=== PATIENT | female | born 1955 | race Caucasian/White ===

== ENCOUNTER 2020-03-14 16:16 | Inpatient (IN) | payer OTHER ==
[2020-03-14 16:34] LABS: Absolute Lymphocytes (CBC) 1.1 K/uL (0.7-4.9); Basophils % 0.9 % (0-1.3); Hematocrit 27.8 % (36.0-45.0); Lymphocytes % 6.3 % (15.3-44.8); MPV 7.1 fL (7.6-11.3); RBC Red Blood Cell Count 3.62 M/uL (3.86-4.86)
[2020-03-14 16:39] LABS: Protime INR 2.12
--- NOTE | 2020-03-14 16:51 | RAD REPORT ---
EXAM DESCRIPTION: Priscila Single View03/14/2020 4:42 pm CLINICAL HISTORY: Chest pain COMPARISON: none FINDINGS: Small to moderate right and small left pleural effusions Bibasilar atelectasis Mild bilateral pulmonary opacities Heart is borderline enlarged. Central venous line in place IMPRESSION: These findings may indicate CHF
[2020-03-14 16:54] LABS: ALT/SGPT 10 U/L (12-78); AST/SGOT 23 U/L (15-37); Albumin 2.4 g/dL (3.4-5.0); Alkaline Phosphatase 35 U/L (45-117); BUN Blood Urea Nitrogen 41 mg/dL (7-18); Bicarbonate 16 mmol/L (21-32); Bilirubin Direct 0.1 mg/dL (0-0.2); Bilirubin Total 0.3 mg/dL (0.2-1.0); Glucose Level 84 mg/dL (74-106); Magnesium 1.8 mg/dL (1.8-2.4); NT PRO-BNP 2426 pg/mL (<125); Protein, Total 7.1 g/dL (6.4-8.2); Sodium Level 123 mmol/L (136-145); Troponin (Emerg Dept Use Only) < 0.02 ng/mL (0.0-0.045)
[2020-03-14 16:57] LABS: Potassium 5.8 mmol/L (3.5-5.1)
[2020-03-14] MEDS ORDERED: Levofloxacin500mg IV 500 MG/100 ML BAG IV ONE (16:58)
[2020-03-14] MEDS ORDERED: NA CHLORIDE 0.9% 1,000 ML ONE (16:58)
[2020-03-14] MEDS ORDERED: FUROSEMIDE 20 MG/ 2ML VIAL ONE (17:21)
[2020-03-14 17:25] LABS: Urine Blood NEGATIVE (NEG); Urine Glucose NEGATIVE (NEG); Urine Protein 1+ (NEG); Urine pH 5.5 (5.0-7.0)
[2020-03-14] MEDS ORDERED: INSULIN -REGULAR HUMAN 50 UNIT/0.5 ML ML ONE (18:03)
[2020-03-14] MEDS ORDERED: D50W 25 GM/50 ML SYRINGE/VIAL IV ONE (18:03)
[2020-03-14 18:41] LABS: Urine White Blood Cell Casts OK
[2020-03-14 18:42] LABS: Blood Morphology Comment NOTED (NOT SEEN); Platelet Estimate INCR; Polychromasia 1+
[2020-03-14] MEDS ORDERED: ACETAMINOPHEN 325 MG TABLET PO PRN (21:20)
[2020-03-14] MEDS ORDERED: ONDANSETRON 4 MG/2 ML VIAL IV PRN (21:20)
[2020-03-14] MEDS ORDERED: HYDRALAZINE HCL 20 MG/ML VIAL IV PRN (21:20)
[2020-03-14] MEDS ORDERED: FUROSEMIDE 40 MG/4 ML VIAL IV ONE (21:25)
[2020-03-14] MEDS ORDERED: SOD POLYSTYREN SUL 15 GM/60 ML UCUP PO ONE (21:28)
--- NOTE | 2020-03-14 21:34 | P.HP ---
Certification for Inpatient With expected LOS: >2 Midnights Patient will require the following post-hospital care: Hospice Practitioner: I am a practitioner with admitting privileges, knowledge of patient current condition, hospital course, and medical plan of care. Services: Services provided to patient in accordance with Admission requirements found in Title 42 Section 412.3 of the Code of Federal Regulations Patient History Date of Service: 03/14/20 Reason for admission: Fall with near syncope History of Present Illness: Patient with hx of metastatic ovarian cancer with reported liver and lung mets since 2018 , s/p failed chemo with self reported prescribed hospice at both [facility] nd [facility] , she stopped following since last 6 months , hx of DVT in the past on Eliquis , currently taking only hydrocodone and eliquis and was last seen at [facility] 1 month ago for meds refill , progressive weakness, SOB , loss of appetite due to dryness in thorat with solid meals but able to tolerate liquid intake . State she has never been tried on any appetite stimulant , states she was refer to hospice but hospice never come to her house since last 4 months . States occ nausea and vomiting . she developed near syncope today while walking to the door . in the ER , she was noted with low BP with systolic in the 80s and CXR showing b/l pleura effusions . Spouse initially wanted peg tube placement for feeding Home medications list reviewed: No - Past Medical/Surgical History Has patient received pneumonia vaccine in the past: No Diabetic: No -: met ovarian cancer Past Surgical History: Patient denies surgical history - Family History Family History: Reviewed- Non-Contributory - Social History Smoking Status: Never smoker Smoking therapy provided: No CD- Drugs: No Caffeine use: No Place of Residence: Home Review of Systems 10-point ROS is otherwise unremarkable ENT: Unremarkable Respiratory: Shortness of Breath, SOB with Excertion Cardiovascular: Unremarkable Gastrointestinal: Diarrhea (since 1 day ) Genitourinary: Unremarkable Integumentary: Unremarkable Neurological: Weakness Physical Examination - Vital Signs Blood Pressure: 88/65 Pulse: 113 Respirations: 30 Pulse Ox (%): 95 - Physical Exam General: Cooperative, Cachectic HEENT: Atraumatic, Normocephalic, Other (markedly pale ), Scleral icterus Neck: 2+ carotid pulse no bruit, JVD not distended Respiratory: Diminished, Crackles/rales Cardiovascular: No edema, Regular rate/rhythm, Normal S1 S2 Capillary refill: <2 Seconds Gastrointestinal: Normal bowel sounds, Soft and benign, Non-distended, No tenderness, No rebound Musculoskeletal: No clubbing, No swelling Integumentary: No rashes, No breakdown Neurological: Normal speech, Normal strength at 5/5 x4 extr, Normal reflexes 2+ - Studies Laboratory Data (last 24 hrs) 03/14/20 16:23: PT 24.6 H, INR 2.12 03/14/20 16:23: WBC 17.2 H, Hgb 8.3 L, Hct 27.8 L, Plt Count 492 H 03/14/20 16:23: Sodium 123 L, Potassium 5.8 H*, BUN 41 H, Creatinine 1.24, Glucose 84, Magnesium 1.8, Total Bilirubin 0.3, AST 23, ALT 10 L, Alkaline Phosphatase 35 L Assessment and Plan - Problems (Diagnosis) (1) Cancer cachexia Current Visit: Yes Status: Acute (2) Hypotension Current Visit: Yes Status: Acute (3) ARF (acute renal failure) Current Visit: Yes Status: Acute (4) Hyperkalemia Current Visit: Yes Status: Acute (5) Hyponatremia syndrome Current Visit: Yes Status: Acute (6) Metabolic acidosis Current Visit: Yes Status: Acute - Advance Directives Does patient have a Living Will: No Does patient have a Durable POA for Healthcare: No Physician Review: Patient Assessed, Agree with Above Assessment and Plan Physician Review Additional Text: # Pleural effusion - due to malignancy , will start gentle diuretics after BP optimized #Hypotension - will start low dose midodrine tid 10 mg - may need IV pressors if persistent #ARF with Hyperkalemia/Met Acidosis - may be due to ATN from hypotension - optimized BP - will consult renal -Dose kayxelate 15 g x1 now -replace bicarb now and IVF at slow gtt -follow BMP q12h for now -Given ovarian cancer , and elevated k , possibility of obstructive uropathy considered , will obtain CT without to r/o hydronephrosis -Insert olson now #Hyponatremia - may be due to SIADH from cancer vs ARF - follow with replacement of bicarbonate #Met Ovarian cancer - will consult case mgt for hospice plan # Advance directive - poor overall prognosis discussed , option of DNR status discussed but patient wants to be full code . Time Spent Managing Pts Care (In Minutes): 65
[2020-03-14 22:03] LABS: Uric Acid 8.6 mg/dL (2.6-6.0)
[2020-03-14 22:04] LABS: Thyroid Stimulating Hormone 9.18 uIU/mL (0.360-3.740)
[2020-03-14] MEDS ORDERED: SCOPOLAMINE HYDROBROMIDE PATCH TD ONE (22:09)
[2020-03-15] MEDS ORDERED: SODIUM BICARB 50 MEQ/50ML VIAL ONE ×3 (00:05→05:54)
[2020-03-15] MEDS ORDERED: D5 0.9 NS 0 ML IV ONE (00:06)
[2020-03-15] MEDS ORDERED: D5W 1,000 ML IV ONE (00:10)
[2020-03-15] MEDS: D5W 1,000 ML with NA BICARB 8.4% 150 MEQ IV SCH ×4 (02:00→22:40)
[2020-03-15 02:15] LABS: Protime INR 2.25
[2020-03-15] MEDS: MIDODRINE HCL 5 MG TABLET PO SCH ×4 (03:53→22:22)
[2020-03-15] MEDS: MORPHINE 2 MG/ML SYR IV PRN ×2 (04:10→09:50)
[2020-03-15 04:36] VITALS: BMI 20.8
[2020-03-15 04:36] LABS: Absolute Lymphocytes (CBC) 1.1 K/uL (0.7-4.9); Basophils % 0.5 % (0-1.3); Hematocrit 23.8 % (36.0-45.0); Lymphocytes % 7.7 % (15.3-44.8); MPV 7.5 fL (7.6-11.3); RBC Red Blood Cell Count 3.12 M/uL (3.86-4.86)
[2020-03-15 04:58] LABS: Albumin 2.1 g/dL (3.4-5.0); Bilirubin Total 0.3 mg/dL (0.2-1.0); Protein, Total 6.4 g/dL (6.4-8.2)
[2020-03-15 04:59] LABS: Potassium 5.8 mmol/L (3.5-5.1)
[2020-03-15] MEDS: FUROSEMIDE 40 MG TABLET PO SCH ×2 (09:00→17:00)
[2020-03-15] MEDS: FAMOTIDINE 20 MG/2 ML VIAL IV SCH ×2 (09:32→22:22)
[2020-03-15] MEDS: MEGESTROL 400 MG/10 ML UCUP PO SCH ×2 (09:32→22:21)
[2020-03-15] MEDS ORDERED: OXYCODONE HCL 5 MG TAB PO PRN (10:20)
[2020-03-15 10:58] LABS: Potassium 5.5 mmol/L (3.5-5.1)
--- NOTE | 2020-03-15 11:01 | RAD REPORT ---
EXAM DESCRIPTION: RAD - Chest Single View - 03/15/2020 10:10 am CLINICAL HISTORY: sob COMPARISON: March 14 portable TECHNIQUE: AP portable chest image was obtained 03/15/2020 10:10 am . FINDINGS: Bilateral pleural effusion pattern remains, fluid is present along the fissures on both si kamilla. Hazy alveolar opacities are present. Right-sided Port-A-Cath is in place. Heart size is normal r taurus. Vasculature is mildly prominent. Lungs may be slightly improved. Differential is minimal. No pn eumothorax. IMPRESSION: Bilateral pleural effusions are present stable from prior imaging. Hazy alveolar opacities are present and may be fractionally improved. The differential is minimal.
[2020-03-15 13:35] LABS: Hematocrit 24.1 % (36.0-45.0)
--- NOTE | 2020-03-15 14:11 | P.CNS ---
Date of Consult: 03/15/20 Reason for Consult: severe hyponatremia Requesting Physician: Anita Villa Chief Complaint: Fall with near syncope History of Present Illness: 64 y o female pt with hx of metastatic ovarian cancer with poor appettite and weakness who was admitted for management of hypotension, cachexia, failure to thrive and severe hyponatremia. Her BP was noted to be low with systolic of 60s on initial evaluation. Sodium was 123 prompting nephrology consultation. As per family, she has had poor appetite and oral intake of food and mostly has been drinking plain water only. She has difficulty swallowing solid food. Allergies codeine Allergy (Verified 03/14/20 21:38) Itching/Hives/Rash iodine Allergy (Verified 03/14/20 21:38) Itching/Hives/Rash Penicillins Allergy (Verified 03/14/20 21:38) Itching/Hives/Rash Home Medications: Apixaban [Eliquis] 1 tab PO BID 03/15/20 Oxycodone HCl [Roxicodone] 1 tab PO Q6HP PRN 03/15/20 Oxycodone Myristate [Xtampza ER] 1 tab PO BID 03/15/20 - Past Medical/Surgical History Diabetic: No -: met ovarian cancer -: "blood clots everywhere" -: hysterectomy - Family History Mother Medical History: Heart disease, Hypertension, Diabetes Brother Medical History: Cancer Notes: bone - Social History Alcohol use: No CD- Drugs: No Caffeine use: No Place of Residence: Home Review of Systems 10-point ROS is otherwise unremarkable Physical Examination Temp Pulse Resp BP Pulse Ox 97.7 F 114 H 24 H 93/71 100 03/15/20 03:21 03/15/20 13:00 03/15/20 13:00 03/15/20 13:00 03/15/20 13:00 General: Alert, Oriented x3, Cachectic HEENT: Atraumatic, Normocephalic, EOMI Neck: Supple Respiratory: Clear to auscultation bilaterally Cardiovascular: No edema, Regular rate/rhythm, Normal S1 S2 Gastrointestinal: Soft and benign Musculoskeletal: No swelling, Other (wasred muscles.) Neurological: Normal speech, Cranial nerves 3-12 intact Laboratory Data (last 24 hrs) 03/15/20 03:50: Sodium 123 L, Potassium 5.8 H*, BUN 41 H, Creatinine 1.25, Glucose 89, Total Bilirubin 0.3, AST 23, ALT 11 L, Alkaline Phosphatase 29 L 03/15/20 03:50: WBC 14.0 H D, Hgb 7.3 L*, Hct 23.8 L, Plt Count 496 H 03/15/20 01:55: PT 26.1 H, INR 2.25, APTT 30.0 03/14/20 16:23: Uric Acid 8.6 H 03/14/20 16:23: PT 24.6 H, INR 2.12 03/14/20 16:23: WBC 17.2 H, Hgb 8.3 L, Hct 27.8 L, Plt Count 492 H 03/14/20 16:23: Sodium 123 L, Potassium 5.8 H*, BUN 41 H, Creatinine 1.24, Glucose 84, Magnesium 1.8, Total Bilirubin 0.3, AST 23, ALT 10 L, Alkaline Phosphatase 35 L Conclusions/Impression: Severe Hyponatremia: deemed due to hypovelemia as she has had poor oral intkae o f food but with her hx of carcinoma, there is strong suspicion for SIADH. We will obtain urine studies of sodium, osmolality and evaluate further. She has been started on isotonic fluid and she has responded well to thi with a 2 point rise in sodiu level. We will monitor her sodium level every 6hrs. Stage 4 ovarian cancer: On home hospice placement finalization. Anorexia: Megace started with nutritional supplementation. Hypovolemia/hypotension: On IV fluid repletion.
--- NOTE | 2020-03-15 15:42 | RAD REPORT ---
EXAM DESCRIPTION: CT - Abdomen Pelvis Wo Contrast - 03/14/2020 11:18 pm CLINICAL HISTORY: R/o hydronephrosis COMPARISON: None. TECHNIQUE: CT ABDOMEN PELVIS WITHOUT IV CONTRAST on 03/14/2020 12:00 AM CDT This exam was performed according to our departmental dose-optimization program, which includes autom ated exposure control, adjustment of the mA and/or kV according to patient size and/or use of iterati ve reconstruction technique. FINDINGS: There are large bilateral pleural effusions. There is extensive bibasilar atelectasis. There are mult iple lower lung nodules measuring up to 5 mm. Abdomen: The liver is normal in appearance. There is no biliary dilatation. Gallbladder is somewhat p oorly seen. There is a large cyst in the medial spleen measuring 8.3 cm. Pancreas is normal. IVC filt er is in place. There may be mild right hydronephrosis. Left kidney and both adrenal glands are gross ly unremarkable. Abdominal aorta is normal in course and caliber without aneurysm. There is no free air. There is no r etroperitoneal adenopathy. Pelvis: There is no bowel obstruction. Urinary bladder is decompressed with a Glynn catheter. There i s no free fluid. Uterus is normal in appearance. Appendix is not well seen. Skeleton: There are no acute osseous findings. No suspicious bony lesions. IMPRESSION: Bilateral pleural effusions with bilateral lower lung pulmonary nodules. No definite acute inflammatory process in the abdomen or pelvis other than splenic indeterminate lesi on. Electronically signed by: Coy Salazar MD 03/14/2020 10:45 PM CDT Due to temporary technical issues with the PACS/Fluency reporting system, reports are being signed by the in house radiologistwithout review asa courtesy toensure prompt reporting. The interpreting radi ologist is fully responsible for the content of the report.
--- NOTE | 2020-03-15 17:58 | P.PN ---
Subjective Date of Service: 03/15/20 Chief Complaint: Fall with near syncope Subjective: Other (Stable. No significant shortness of breath.) Physical Examination - Vital Signs Temperature: 97.9 F Blood Pressure: 85/66 Pulse: 98 Respirations: 22 Pulse Ox (%): 100 - Physical Exam General: Alert, Cooperative HEENT: Atraumatic Neck: Supple Respiratory: Crackles/rales Cardiovascular: Normal pulses, Regular rate/rhythm Gastrointestinal: Normal bowel sounds, Soft and benign, Non-distended Neurological: Normal affect - Studies Laboratory Data (last 24 hrs) 03/15/20 03:50: Sodium 123 L, Potassium 5.8 H*, BUN 41 H, Creatinine 1.25, Glucose 89, Total Bilirubin 0.3, AST 23, ALT 11 L, Alkaline Phosphatase 29 L 03/15/20 03:50: WBC 14.0 H D, Hgb 7.3 L*, Hct 23.8 L, Plt Count 496 H 03/15/20 01:55: PT 26.1 H, INR 2.25, APTT 30.0 03/14/20 16:23: Uric Acid 8.6 H Microbiology Data (last 24 hrs): 03/14/20 17:47 Blood - Blood Anaerobic Blood Culture - Final Medications List Reviewed: Yes Assessment & Plan Discharge Plan: Home (With hospice) Plan to discharge in: 24 Hours Physician Review Additional Text: Impression: Bilateral pleural effusion likely malignant in nature Stage IV ovarian cancer with metastasis Hypotension likely related to above Acute renal failure with hyperkalemia and metabolic acidosis Hyponatremia Plan: Case discussed at length with patient and . Patient understands that her diagnosis is terminal. Apparently she has been to [facility] and [facility]. Both have recommended hospice. Advanced directives addressed in detail. Patient unsure of her current situation. She does desire to go home on hospice. Will have hospice evaluate patient. Will need to consider discharge with hospice tomorrow. Will discuss further with patient's family. Will try to obtain information on her current status related to her stage IV ovarian cancer. Will discuss further with nephrology. Time Spent Managing Pts Care (In Minutes): 55
--- NOTE | 2020-03-15 19:16 | EDPHYS ---
Physician Documentation [facility] Name: Amparo Hardy Age: 64 yrs Sex: Female : 1955 Arrival Date: 03/14/2020 Time: 16:17 Bed 7 Private MD: ED Physician Kush Oneill HPI: 03/14 16:39 This 64 yrs old Female presents to ER via EMS with complaints of Shortness Of kdr Breath, Needs home O2 \T\ hospice. 16:39 The patient has shortness of breath at rest, with light activity. Onset: The kdr symptoms/episode began/occurred gradually, at an unknown time. Duration: The symptoms are continuous, and are steadily getting worse. 18:04 The patient has become increasing weak over the last few months. She has Stage 4 kdr Ovarian CA and was sitting in a chair when she became weak and slid out onto the floor. EMS was called and she was noted to have O2 saturation in the 80's and was tachycardiac (130's). Family explains is not happy with the care and options they have been given at [facility] in [place]. Specifically, they have wanted a feeding tube placed and they claim her oncologist (Dr. Ruff) has refused to allow this to happen. They claim that the patient has had very poor nutrition secondary to inability to eat and she grows weaker. Historical: - Allergies: 16:26 Iodine; sv 16:26 Codeine; sv 16:26 PENICILLINS; sv - Home Meds: 16:26 Eliquis oral oral [Active]; Oxycodone HCl Oral [Active]; Xtampza quick release [Active];sv - PMHx: 16:26 Metastatic cancer; sv - Immunization history:: Adult Immunizations. - Social history:: Smoking status: Patient denies any tobacco usage or history of. ROS: 18:04 Constitutional: Negative for fever, chills, - she has had weight loss, She was kdr orginally 81 kg and is now 54 kg Eyes: Negative for injury, pain, redness, and discharge, Neck: Negative for injury, pain, and swelling, Abdomen/GI: Negative for abdominal pain, nausea, vomiting, diarrhea, and constipation, : Negative for injury, bleeding, discharge, and swelling, MS/Extremity: Negative for injury and deformity, Skin: Negative for injury, rash, and discoloration, Psych: Negative for depression, anxiety, suicide ideation, homicidal ideation, and hallucinations, Allergy/Immunology: Negative for hives, rash, and allergies, Endocrine: Negative for neck swelling, polydipsia, polyuria, polyphagia, and marked weight changes, Hematologic/Lymphatic: Negative for swollen nodes, abnormal bleeding, and unusual bruising. 18:04 Cardiovascular: Positive for palpitations, Negative for chest pain, edema, orthopnea. 18:04 Respiratory: Positive for dyspnea on exertion, shortness of breath, Negative for orthopnea, pleurisy. Exam: 16:50 Constitutional: This is a well developed, well nourished patient who is awake, alert, kdr and in mmild to moderate distress. Head/Face: Normocephalic, atraumatic. Eyes: Pupils equal round and reactive to light, extra-ocular motions intact. Lids and lashes normal. Conjunctiva and sclera are non-icteric and not injected. Cornea within normal limits. Periorbital areas with no swelling, redness, or edema. Neck: Trachea midline, no thyromegaly or masses palpated, and no cervical lymphadenopathy. Supple, full range of motion without nuchal rigidity, or vertebral point tenderness. No Meningismus. Chest/axilla: Normal chest wall appearance and motion. Nontender with no deformity. No lesions are appreciated. Neuro: Awake and alert, GCS 15, oriented to person, place, time, and situation. Cranial nerves II-XII grossly intact. Motor strength 5/5 in all extremities. Sensory grossly intact. Cerebellar exam normal. the patient is bed bound 16:50 Cardiovascular: Rate: tachycardic, Rhythm: regular, Pulses: thready, weak, Edema: is not appreciated. 16:50 ECG was reviewed by the Attending Physician. 16:50 Respiratory: mild respiratory distress is noted, Respirations: labored breathing, that is mild, Breath sounds: rales, that are mild, are scattered. Vital Signs: 16:09 BP 94 / 61; Pulse 128; Resp 30; Temp 97.6; Pulse Ox 100% ; sv 16:44 Weight 54.43 kg; sv 17:24 BP 103 / 66; Pulse 117; Resp 28; Pulse Ox 100% on 5 lpm NC; sv 18:34 BP 95 / 60; Pulse 118 MON; Resp 26; Pulse Ox 100% on 5 lpm NC; sv 19:41 BP 84 / 57; Pulse 110; Resp 25; Pulse Ox 100% on 5 lpm NC; mg2 20:45 BP 93 / 59; Pulse 100; Resp 23; Pulse Ox 97% ; mg2 21:29 BP 96 / 49; Pulse 112; Resp 18; Pulse Ox 100% on R/A; mg2 23:00 BP 91 / 61; Pulse 93; Resp 22; Pulse Ox 100% on 5 lpm NC; mg2 06/01 00:00 BP 89 / 61; Pulse 92; Resp 21; Pulse Ox 100% on 5 lpm NC; mg2 01:00 BP 93 / 60; Pulse 92; Resp 22; Pulse Ox 100% on 5 lpm NC; mg2 02:34 BP 106 / 63; Pulse 96; Resp 18; Temp 98; Pulse Ox 100% on 5 lpm NC; mg2 18:34 Sinus tachycardia sv MDM: 03/14 16:50 Data reviewed: vital signs, nurses notes, lab test result(s), EKG, radiologic studies. kdr Counseling: I had a detailed discussion with the patient and/or guardian regarding: the historical points, exam findings, and any diagnostic results supporting the discharge/admit diagnosis, lab results, radiology results. 18:45 ED course: family refused CT chest - has prior history of PE (on Eliquis). kdr 18:46 ED course: [facility] declined transfer due to possible need for ICU and they were on ICU kdr staturation. 19:28 Patient medically screened. kdr 03/14 16:19 Order name: Basic Metabolic Panel kdr 03/14 16:19 Order name: CBC with Diff kdr 03/14 16:19 Order name: LFT's; Complete Time: 17:14 kdr 03/14 16:19 Order name: Magnesium; Complete Time: 17:14 kdr 03/14 16:19 Order name: NT PRO-BNP; Complete Time: 17:14 kdr 03/14 16:19 Order name: PT-INR; Complete Time: 17:14 kdr 03/14 16:19 Order name: Troponin (emerg Dept Use Only); Complete Time: 17:14 kdr 03/14 16:20 Order name: Basic Metabolic Panel; Complete Time: 17:14 EDMS 03/14 16:33 Order name: Blood Culture Adult (2) kdr 03/14 16:33 Order name: Procalcitonin; Complete Time: 17:48 kdr 03/14 16:33 Order name: Lactate; Complete Time: 17:14 kdr 03/14 16:33 Order name: Blood Culture [facility] 03/14 16:36 Order name: Urine Culture [facility] 03/14 16:39 Order name: CBC Smear Scan [facility] 03/14 16:19 Order name: XRAY Chest (1 view); Complete Time: 17:14 kdr 03/14 17:17 Order name: Urine Dipstick--Ancillary (enter results); Complete Time: 17:48 eb 03/14 21:28 Order name: Osmolality, Serum [facility] 03/14 21:28 Order name: Thyroid Stimulating Hormone [facility] 03/14 21:28 Order name: Uric Acid [facility] 03/14 21:28 Order name: Protime (+INR) [facility] 03/14 21:28 Order name: PTT, Activated Partial Thromb [facility] 03/14 21:28 Order name: UR CREAT [facility] 03/14 21:28 Order name: UR SODIUM [facility] 03/14 21:28 Order name: CBC with Automated Diff [facility] 03/14 21:28 Order name: CBC with Automated Diff [facility] 03/14 21:28 Order name: Comprehensive Metabolic Panel [facility] 03/14 21:28 Order name: Comprehensive Metabolic Panel [facility] 03/14 21:29 Order name: CT-ABD [facility] 03/14 22:18 Order name: T4 Free [facility] 03/14 16:19 Order name: EKG; Complete Time: 16:21 [facility] 03/14 16:19 Order name: Cardiac monitoring; Complete Time: 16:28 [facility] 03/14 16:19 Order name: EKG - Nurse/Tech; Complete Time: 16:45 [facility] 03/14 16:19 Order name: IV Saline Lock; Complete Time: 16:28 [facility] 03/14 16:19 Order name: Labs collected and sent; Complete Time: 16:28 [facility] 03/14 16:19 Order name: O2 Per Protocol; Complete Time: 16:28 [facility] 03/14 16:19 Order name: O2 Sat Monitoring; Complete Time: 16:28 [facility] 03/14 16:36 Order name: Urine Dipstick-Ancillary (obtain specimen); Complete Time: 16:45 kdr 03/14 21:28 Order name: CONS Pharmacy Consult [facility] 03/14 21:28 Order name: CONS Physician Consult [facility] 03/14 21:28 Order name: Full Liquid [facility] 03/14 21:30 Order name: Case Management Consult [facility] EC:50 Rate is 123 beats/min. Rhythm is regular, Sinus tachycardia with No ectopy. Left axis kdr deviation noted. IL interval is normal. QRS interval is normal. QT interval is normal. No Q waves. Clinical impression: Sinus tachycardia. Administered Medications: 17:10 Drug: NS 0.9% (30 ml/kg) 30 ml/kg Route: IV; Rate: bolus; Site: left wrist; sv 19:12 Follow up: Response: No adverse reaction; IV Status: Completed infusion; IV Intake: ea 1000ml 17:24 Drug: Lasix 20 mg Route: IVP; Site: left wrist; sv 18:07 Follow up: Response: No adverse reaction sv 18:14 Drug: Insulin Regular Human 10 units {Co-Signature: iw (Cynthia Herbert RN).} Route: sv IVP; Site: left wrist; 18:25 Follow up: Response: No adverse reaction sv 18:15 Drug: D50W 50 ml Route: IVP; Site: left wrist; sv 18:25 Follow up: Response: No adverse reaction sv 18:18 Drug: LevaQUIN 500 mg Volume: 100 ml; Route: IVPB; Infused Over: 60 mins; Site: left sv wrist; 20:00 Follow up: Response: No adverse reaction; IV Status: Completed infusion ea 19:35 Drug: Eliquis 5 mg Route: PO; mg2 03/15 02:38 Follow up: Response: No adverse reaction mg2 Disposition: 03/14/20 20:09 Hospitalization ordered by Anita Villa for Inpatient Admission. Preliminary diagnosis are Weakness, Hypotension, Respiratory failure, unspecified with hypoxia, Metastatic Stage 4 Ovarian Cancer.. - Bed requested for Intensive Care Unit. - Status is Inpatient Admission. ea - Condition is Critical. - Problem is an acute exacerbation. - Symptoms have improved. Signatures: Dispatcher [facility] Audra Paul RN RN sv Rittger, Kevin, MD MD kdr Garcia, Cindy, RN RN cg Antunez, Elena, RN RN ea Gardose, Michele, RN RN mg2 Irene Williams RN iw Corrections: (The following items were deleted from the chart) 03/14 19:29 19:28 03/14/2020 19:28 Transfer ordered to [facility]. kdr Diagnosis is Weakness; Mild Congestie heart Failure, Hypotension, Hypoxia, Dehydration, Failure to Thrive.. Reason for transfer: Higher level of care. Accepting physician is Dr. Lester. Condition is Critical. Problem is an acute exacerbation. Symptoms have improved. [facility] 20:04 19:29 03/14/2020 19:28 Transfer ordered to [facility]. kdr Diagnosis is Weakness; Mild Congestie heart Failure, Hypotension, Hypoxia, Dehydration, Failure to Thrive.; Metastatic Ovarian Cancer (Stage IV). Reason for transfer: Higher level of care. Accepting physician is Dr. Lester. Condition is Critical. Problem is an acute exacerbation. Symptoms have improved. [facility] 03/15 01:40 03/14 20:09 Hospitalization Ordered by Anita Villa MD for Inpatient Admission. cg Preliminary diagnosis is Weakness; Hypotension; Respiratory failure, unspecified with hypoxia; Metastatic Stage 4 Ovarian Cancer.. Bed requested for Intensive Care Unit. Status is Inpatient Admission. Condition is Critical. Problem is an acute exacerbation. Symptoms have improved. [facility] 03/15 03:06 01:40 03/14/2020 20:09 Hospitalization Ordered by Anita Villa MD for Inpatient ea Admission. Preliminary diagnosis is Weakness; Hypotension; Respiratory failure, unspecified with hypoxia; Metastatic Stage 4 Ovarian Cancer.. Bed requested for Intensive Care Unit. Status is Inpatient Admission. Condition is Critical. Problem is an acute exacerbation. Symptoms have improved. cg
--- NOTE | 2020-03-15 19:16 | ER ---
Nurse's Notes [facility] Name: Amparo Hardy Age: 64 yrs Sex: Female : 1955 Arrival Date: 03/14/2020 Time: 16:17 Bed 7 Private MD: Diagnosis: Weakness;Hypotension;Respiratory failure, unspecified with hypoxia;Metastatic Stage 4 Ovarian Cancer. Presentation: 03/14 16:04 Chief complaint: EMS states: called out for SOB, pt slid out of her recliner while sv being placed on the bedside commode. SOB is positional stated by daughter. Daughter states pt has metastatic cancer for about 3 years and has been waiting to get hospice started and she needs home O2. SBP 90-100s. ST-130s BS-95 99% on O2 \\T\\ 6L per NC. Coronavirus screen: Proceed with normal triage. Patient denies a cough. Patient reports shortness of breath or difficulty breathing. Patient denies measured and/or subjective temperature greater than 100.4F prior to today's visit. Patient denies travel on a cruise ship or to a country the [facility] currently lists as an affected area. Patient denies contact with known and/or suspected case of COVID-19. Ebola Screen: No symptoms or risks identified at this time. 16:04 Method Of Arrival: [facility] sv 16:09 Initial Sepsis Screen: Does the patient meet any 2 criteria? RR > 20 per min. HR > 90 sv bpm. Yes Does the patient have a suspected source of infection? No. Patient's initial sepsis screen is negative. Risk Assessment: Do you want to hurt yourself or someone else? Patient reports no desire to harm self or others. Onset of symptoms is unknown. 16:09 Acuity: SHANNON 2 sv 16:26 Care prior to arrival: Medication(s) given: Normal saline infusion, 750 mls IV sv initiated. in the left wrist, 24G Glucose check: 95 Oxygen administered. via nasal cannula. Triage Assessment: 16:04 General: Appears in no apparent distress. uncomfortable, slender, emaciated, sv malnourished, Behavior is calm, cooperative, appropriate for age, Smells of incontinence.. Pain: Complains of pain in "all over". Neuro: Level of Consciousness is awake, alert, obeys commands, Oriented to person, place, time, situation, Weakness in bilateral arm(s) leg(s) Speech is normal. Cardiovascular: Pulses are palpable in right radial artery and left radial artery Rhythm is sinus tachycardia. Respiratory: Reports shortness of breath at rest Airway is patent Respiratory effort is unlabored, shallow, Respiratory pattern is symmetrical, tachypnea. Derm: Skin is fragile, is thin, with poor turgor Skin is pale, Decubitus located on sacrum is stage I is draining none noted. Historical: - Allergies: 16:26 Iodine; sv 16:26 Codeine; sv 16:26 PENICILLINS; sv - Home Meds: 16:26 Eliquis oral oral [Active]; Oxycodone HCl Oral [Active]; Xtampza quick release [Active];sv - PMHx: 16:26 Metastatic cancer; sv - Immunization history:: Adult Immunizations. - Social history:: Smoking status: Patient denies any tobacco usage or history of. Screenin:27 Abuse screen: Denies threats or abuse. Denies injuries from another. Nutritional sv screening: On Ensure drinks. Tuberculosis screening: No symptoms or risk factors identified. Fall Risk No fall in past 12 months (0 pts). Secondary diagnosis (15 points) impaired mobility, IV access (20 points). Ambulatory Aid- None/Bed Rest/Nurse Assist (0 pts). Gait- Normal/Bed Rest/Wheelchair (0 pts) Mental Status- Oriented to own ability (0 pts). Total Luis Fall Scale indicates Low Risk Score (25-44 pts). Fall prevention measures have been instituted. Side Rails Up X 2 Placed close to Nursing Station Frequent Obs/Assesments occuring Family Present and informed to notify staff if they need to leave bedside As available Patient and Family Educated on Fall Prevention Program and strategies. Assessment: 16:30 Reassessment: Patient appears in no apparent distress at this time. No changes from sv previously documented assessment. Patient and/or family updated on plan of care and expected duration. Pain level reassessed. 16:57 Reassessment: Received call from Karen in the lab for a critical Potassium of 5.8. rb1 Nurse and provider notified. 17:26 Reassessment: Inside lab at the bedside to obtain BC. sv 17:30 Reassessment: Patient appears in no apparent distress at this time. No changes from sv previously documented assessment. Patient and/or family updated on plan of care and expected duration. Pain level reassessed. 18:22 Reassessment: Patient appears in no apparent distress at this time. No changes from sv previously documented assessment. Patient and/or family updated on plan of care and expected duration. Pain level reassessed. 19:00 Reassessment: Provider notified of BP 84/62, no new orders obtained. ea 19:38 Reassessment: patient took her own medicine eliquis 5 mg. agreed to be given by the mg2 provider. 19:43 Reassessment: Patient appears in no apparent distress at this time. No changes from mg2 previously documented assessment. Patient and/or family updated on plan of care and expected duration. Pain level reassessed. patient was informed about the plan for transfer. patient agreed. 03/15 01:33 Reassessment: Patient appears in no apparent distress at this time. No changes from mg2 previously documented assessment. Patient and/or family updated on plan of care and expected duration. Pain level reassessed. 02:55 Reassessment: Patient and/or family updated on plan of care and expected duration. Pain ea level reassessed. Pt admitted to ICU, pt left ED via stretcher per nurse and tech, accompanied by . Pt alert and O x 3, respirations even and unlabored. Vital Signs: 03/14 16:09 BP 94 / 61; Pulse 128; Resp 30; Temp 97.6; Pulse Ox 100% ; sv 16:44 Weight 54.43 kg; sv 17:24 BP 103 / 66; Pulse 117; Resp 28; Pulse Ox 100% on 5 lpm NC; sv 18:34 BP 95 / 60; Pulse 118 MON; Resp 26; Pulse Ox 100% on 5 lpm NC; sv 19:41 BP 84 / 57; Pulse 110; Resp 25; Pulse Ox 100% on 5 lpm NC; mg2 20:45 BP 93 / 59; Pulse 100; Resp 23; Pulse Ox 97% ; mg2 21:29 BP 96 / 49; Pulse 112; Resp 18; Pulse Ox 100% on R/A; mg2 23:00 BP 91 / 61; Pulse 93; Resp 22; Pulse Ox 100% on 5 lpm NC; mg2 03/15 00:00 BP 89 / 61; Pulse 92; Resp 21; Pulse Ox 100% on 5 lpm NC; mg2 01:00 BP 93 / 60; Pulse 92; Resp 22; Pulse Ox 100% on 5 lpm NC; mg2 02:34 BP 106 / 63; Pulse 96; Resp 18; Temp 98; Pulse Ox 100% on 5 lpm NC; mg2 18:34 Sinus tachycardia sv ED Course: 03/14 16:04 Maintain EMS IV. Dressing intact. Site clean \\T\\ dry. Gauge \\T\\ site: 24G L wrist. sv 16:17 Patient arrived in ED. sv 16:18 Audra Paul, RN is Primary Nurse. sv 16:19 Kush Oneill MD is Attending Physician. kdr 16:24 Triage completed. sv 16:26 Arm band placed on. sv 16:27 Patient has correct armband on for positive identification. Bed in low position. Call sv light in reach. Side rails up X2. Adult w/ patient. monitoring specialist on. Pulse ox on. NIBP on. Door closed. Head of bed elevated. 16:30 Basic Metabolic Panel Sent. sv 16:30 Glynn cath inserted, using sterile technique, 16 Fr., by me, balloon inflated, to sv gravity drainage, urine specimen collected. returned clear yellow urine. Patient tolerated well. 16:31 Initial lab(s) drawn, by me, sent to lab. iw 16:43 XRAY Chest (1 view) In Process Unspecified. EDMS 16:44 CBC Smear Scan Sent. sv 16:45 EKG done, by ED staff, reviewed by Kush Oneill MD. sv 17:47 First set of blood cultures drawn by lab staff. sv 17:52 initiated a transfer with Aundrea Lacey from the [facility]. eb 18:17 per Aundrea Lacey she is still waiting for the GI rag production worker to return her page and she eb will call us back once she gets her on the line. 18:20 connected the GI rag production worker for [facility] with Dr. Oneill for patient transfer eb consultation. 18:25 Blood Culture Adult (2) Sent. sv 19:14 Primary Nurse role handed off by Audra Paul, EFREM sv 19:37 [place] RN is Primary Nurse. mg2 20:04 Anita Villa MD is Hospitalizing Provider. kdr 21:19 No provider procedures requiring assistance completed. Patient admitted, IV remains in ea place. 03/15 02:00 Accessed Port-a-Cath. using accessed w/ # 20 Will needle, 20G Nexia IV catheter mg2 ,sterile technique, per hospital protocol. Clean \\T\\ dry. Dressing intact. Good blood return. Flushes easily. Administered Medications: 03/14 17:10 Drug: NS 0.9% (30 ml/kg) 30 ml/kg Route: IV; Rate: bolus; Site: left wrist; sv 19:12 Follow up: Response: No adverse reaction; IV Status: Completed infusion; IV Intake: ea 1000ml 17:24 Drug: Lasix 20 mg Route: IVP; Site: left wrist; sv 18:07 Follow up: Response: No adverse reaction sv 18:14 Drug: Insulin Regular Human 10 units {Co-Signature: monica (Cynthia Herbert RN).} Route: sv IVP; Site: left wrist; 18:25 Follow up: Response: No adverse reaction sv 18:15 Drug: D50W 50 ml Route: IVP; Site: left wrist; sv 18:25 Follow up: Response: No adverse reaction sv 18:18 Drug: LevaQUIN 500 mg Volume: 100 ml; Route: IVPB; Infused Over: 60 mins; Site: left sv wrist; 20:00 Follow up: Response: No adverse reaction; IV Status: Completed infusion ea 19:35 Drug: Eliquis 5 mg Route: PO; mg2 03/15 02:38 Follow up: Response: No adverse reaction mg2 Intake: 03/14 19:12 IV: 1000ml; Total: 1000ml. ea Output: 20:00 Urine: 200ml (Glynn); Total: 200ml. mg2 Outcome: 19:28 ER care complete, transfer ordered by . kdr 20:09 Decision to Hospitalize by Provider. kdr 21:19 Instructed on the need for admit. ea 03/15 03:05 Admitted to ICU accompanied by nurse, accompanied by tech, via stretcher, room 7, on ea monitor, with chart, Report called to receiving nurse in ICU Condition: stable 03:06 Patient left the ED. ea Signatures: Dispatcher [employer] EDMS Audra Paul RN RN sv Rittger, Kevin, MD MD kdr Williams, Irene, RN RN iw Barber, Rebecca, RN RN rb1 Antunez, Elena, RN RN ea Botello, Elizabeth eb Gardose, Tree, RN RN mg2 Cynthia Herbert RN Corrections: (The following items were deleted from the chart) 03/14 19:43 19:43 Reassessment: Patient appears in no apparent distress at this time. No changes mg2 from previously documented assessment. Patient and/or family updated on plan of care and expected duration. Pain level reassessed. mg2 03/15 01:33 00:00 BP 93 / 60; Pulse 92bpm; Resp 22bpm; Pulse Ox 100% 5 lpm Nasal Cannula; mg2 mg2
[2020-03-15] MEDS ORDERED: APIXABAN 5 MG TABLET PO SCH (21:00)
[2020-03-15] MEDS: OXYCODONE MYRISTATE 9 MG PO SCH (21:00)
[2020-03-15] MEDS: ENSURE ENLIVE 237 ML CAN PO SCH (22:26)
[2020-03-15] MEDS: JUVEN PACKET PO SCH (22:27)
[2020-03-16] MEDS: JUVEN PACKET PO SCH (08:50)
[2020-03-16] MEDS: FUROSEMIDE 40 MG TABLET PO SCH ×2 (08:51→17:47)
[2020-03-16] MEDS: ENSURE ENLIVE 237 ML CAN PO SCH (08:52)
[2020-03-16] MEDS: MIDODRINE HCL 5 MG TABLET PO SCH ×2 (08:55→15:29)
[2020-03-16] MEDS: FAMOTIDINE 20 MG/2 ML VIAL IV SCH (08:55)
[2020-03-16] MEDS: OXYCODONE MYRISTATE 9 MG PO SCH (09:00)
[2020-03-16] MEDS: MEGESTROL 400 MG/10 ML UCUP PO SCH (09:00)
[2020-03-16 09:44] VITALS: O2SAT 94
--- NOTE | 2020-03-16 14:58 | P.PN ---
Subjective Date of Service: 03/16/20 Chief Complaint: Fall with near syncope Subjective: Other (Patient appears comfortable. No significant pain noted.) Physical Examination - Vital Signs Temperature: 99.3 F Blood Pressure: 95/59 Pulse: 79 Respirations: 22 Pulse Ox (%): 95 - Physical Exam General: Alert, Cooperative, Cachectic, Other (Muscle wasting to the upper lower extremities including torso) HEENT: Atraumatic Neck: Supple Respiratory: Diminished (To the bases) Cardiovascular: Normal pulses, Regular rate/rhythm Neurological: Normal speech, Normal strength at 5/5 x4 extr, Normal tone - Studies Microbiology Data (last 24 hrs): 03/14/20 17:47 Blood - Blood Anaerobic Blood Culture - Final Medications List Reviewed: Yes Assessment & Plan Discharge Plan: Home (With hospice) Plan to discharge in: 24 Hours Physician Review Additional Text: Impression: Bilateral pleural effusion likely malignant in nature Stage IV ovarian cancer with metastasis Hypotension likely related to above Acute renal failure with hyperkalemia and metabolic acidosis Hyponatremia likely SIADH Plan: Continue with IV fluids as recommended by nephrology. Continue maintain oxygen above 93%. Still trying to obtain information from [place] [facility]. It appears patient has terminal diagnosis of stage IV ovarian cancer with metastasis. Advanced directives addressed yesterday. Patient desires full code but desires hospice. This was readdressed with patient. Patient appears to understand her terminal diagnosis. Patient on stable for PEG tube placement. This was addressed in detail with patient and yesterday. Family trying to get hospice arranged at home. Will continue to support patient at this time. Once hospice is arranged patient will likely desire discharge. Will discuss further with nephrology. Will try to reach out to patient's oncologist. Time Spent Managing Pts Care (In Minutes): 55
[2020-03-16 17:13] VITALS: TEMP 99.2
[2020-03-16] MEDS ORDERED: HEPARIN 500 UNIT/5 ML SYR IV PRN (18:12)
[2020-03-16 19:57] VITALS: BP 107/72
[2020-03-16] MEDS ORDERED: APIXABAN 5 MG TABLET PO SCH (21:00)
--- NOTE | 2020-03-16 21:02 | P.DS ---
Admission Date: 03/15/20 Discharge Date: 03/16/20 Primary Care Provider: unknown Disposition: HOSPICE-HOME Discharge Condition: GOOD Reason for Admission: Fall with near syncope Consultations: Nephrology-Dr. Mojica Procedures: Medical Problem List: Fall with syncope related to Severe protein malnutrition complicated with Stage 4 Ovarian cancer with Lung/Liver mets Acute renal failure with Hyperkalemia Bilateral pleural effusion likely malignant in nature Anemia of chronic disease with thrombocytopenia Severe protein malnutrition Hx of DVT on chronic anticoagulation Chronic pain related to Stage 4 ovarian cancer Brief History of Present Illness: 64 yo CF presented with increased fatigue, poor oral intake and syncope. Hospital Course: Patient presented with worsening symptoms of fatigue, poor oral intake and syncope related to Stage 4 ovarian cancer with mets to the liver/lung. She was found to have acute renal failure with hyperkalemia and metabolic acidosis, bilateral pleural effusions likely malignant in nature, and hypotension related to her chronic worsening condition. Patient with history of anemia of chronic disease, severe protein malnutrition, and Hx of DVT on chronic anticoagution. She was seen and evaluated for possible intervention, which included the possibility of PEG tube. Advanced directives and advance care planning was addressed. Patient understands that her condition is terminal. She was too weak to consider PEG tube placement especially with her risk factors and current condition. She was seen by [facility] and [facility] Downing who both recommended Hospice. After much thought, she decided on Hospice at home. She was treated with IV fluids and oxygen. She was seen by Nephrology. At discharge she will continue with her current meds with Hospice at home. She will continue with medication for pain, anxiety and her medication for DVT. Vital Signs/Physical Exam: Temp Pulse Resp BP Pulse Ox 99.2 F 98 H 22 H 107/72 95 03/16/20 19:48 03/16/20 19:48 03/16/20 19:48 03/16/20 19:48 03/16/20 19:48 General: Alert, In no apparent distress, Cachectic HEENT: Atraumatic Neck: Supple Respiratory: Crackles/rales Cardiovascular: Normal pulses, Regular rate/rhythm Gastrointestinal: Normal bowel sounds, No tenderness Neurological: Normal speech, Normal strength at 5/5 x4 extr, Normal tone Laboratory Data at Discharge: WBC 14.0 K/uL (4.3-10.9) H D 03/15/20 03:50 Hgb 7.5 g/dL (12.0-15.0) L* 03/15/20 12:20 Hct 24.1 % (36.0-45.0) L 03/15/20 12:20 Plt Count 496 K/uL (152-406) H 03/15/20 03:50 PT 26.1 SECONDS (9.5-12.5) H 03/15/20 01:55 INR 2.25 03/15/20 01:55 APTT 30.0 SECONDS (24.3-36.9) 03/15/20 01:55 Sodium Cancelled 03/15/20 12:00 Potassium Cancelled 03/15/20 12:00 BUN Cancelled 03/15/20 12:00 Creatinine Cancelled 03/15/20 12:00 Glucose Cancelled 03/15/20 12:00 Uric Acid 8.6 mg/dL (2.6-6.0) H 03/14/20 16:23 Magnesium 1.8 mg/dL (1.8-2.4) 03/14/20 16:23 Total Bilirubin 0.3 mg/dL (0.2-1.0) 03/15/20 03:50 AST 23 U/L (15-37) 03/15/20 03:50 ALT 11 U/L (12-78) L 03/15/20 03:50 Alkaline Phosphatase 29 U/L (45-117) L 03/15/20 03:50 Home Medications: Apixaban [Eliquis] 1 tab PO BID 03/15/20 Oxycodone HCl [Roxicodone] 1 tab PO Q6HP PRN 03/15/20 Oxycodone Myristate [Xtampza ER] 1 tab PO BID 03/15/20 Patient Discharge Instructions: Patient will go home with Hospice. She may continue with her current medications. Further medication and orders will come from Hospice. Diet: Regular Activity: Fall precautions Time spent managing pt's care (in minutes): 55
== END 2020-03-16 19:45 | disposition hospice, home (50) | DRG 754 ==
LOC: ER 16:16 → ERHOLD 21:29 → 3RD-ICU 03-15 02:54 → OBSVTOIN 03-15 07:45
PROVIDERS: ADMIT Internal Medicine; ATTEND Family Medicine
DX: C56.9 Malignant neoplasm of unspecified ovary (principal); E43 Unspecified severe protein-calorie malnutrition; J91.0 Malignant pleural effusion; C78.00 Secondary malignant neoplasm of unspecified lung; C78.7 Secondary malignant neoplasm of liver and intrahepatic bile duct; N17.9 Acute kidney failure, unspecified; E87.2 Acidosis; E22.2 Syndrome of inappropriate secretion of antidiuretic hormone; R64 Cachexia; Z79.01 Long term (current) use of anticoagulants; Z79.891 Long term (current) use of opiate analgesic; Z68.20 Body mass index [BMI] 20.0-20.9, adult; I95.9 Hypotension, unspecified; E87.5 Hyperkalemia; Z86.718 Personal history of other venous thrombosis and embolism; W07.XXXA Fall from chair, initial encounter; Z88.5 Allergy status to narcotic agent; Z88.0 Allergy status to penicillin; Z91.048 Other nonmedicinal substance allergy status; Z79.899 Other long term (current) drug therapy; Z90.710 Acquired absence of both cervix and uterus; D63.8 Anemia in other chronic diseases classified elsewhere; D69.6 Thrombocytopenia, unspecified; G89.3 Neoplasm related pain (acute) (chronic)
CPT/HCPCS: 36415; 51702; 71045; 74176; 80048; 80053; 80076; 81003; 82570; 83605; 83735; 83880; 83930; 83935; 84145; 84300; 84439; 84443; 84484; 84550; 85014; 85018; 85025; 85610; 85730; 87040; 87086; 87088; 93005; 96365; 96366; 96375; 99285; G0378; J1642; J1940; J2270; J7030; J7042